=== PATIENT | female | born 1945 | race Caucasian/White ===

== ENCOUNTER → 2016-05-03 | Outpatient (CLI) | payer OTHER, MEDICARE ==
--- NOTE | 2016-05-03 16:55 | DX ---
Lumbar spine, 2 views History: M48.06, lumbar surgery. Comparison: March 2016. Findings: Bilateral transpedicle screws and fusion rods with interbody disk fusion plugs at the L3, L 4 and L5 levels with hardware appearing intact. Severe thoracolumbar levoscoliosis 48 degrees centere d at the L1 level. No evidence of acute compression fracture of the lumbar vertebral bodies. Moderate to severe degenerative disk disease at L1-L2 and L2-L3 with disk space narrowing and osteophytes. Sc lerotic changes in bilateral sacroiliac joints. Impression: 1. L3 through L5 diskectomy and hardware appearing intact. 2. Severe levoscoliosis.
== END ==
LOC: FIMAGING 14:50
PROVIDERS: ATTEND Physician Assistant
DX: M41.9 Scoliosis, unspecified (principal); Z98.1 Arthrodesis status

== ENCOUNTER → 2016-06-06 | Outpatient (CLI) | payer OTHER, MEDICARE ==
--- NOTE | 2016-06-06 19:50 | DX ---
Lumbar spine 2 views Indication: Post fusion. Comparison: May 03, 2016. Findings: Posterior transpedicular screws at L3, L4, and L5 demonstrate no change. No evidence for owens rdware fracture or loosening. The intervertebral disks materials are also unchanged. No compression d eformity. Rest of the spine is unchanged. Impression: No change since May 03, 2016.
== END ==
LOC: FIMAGING 14:03
PROVIDERS: ATTEND Physician Assistant
DX: Z09 Encounter for follow-up examination after completed treatment for conditions other than malignant neoplasm (principal); Z98.1 Arthrodesis status

== ENCOUNTER → 2016-08-29 | Outpatient (CLI) | payer OTHER, MEDICARE | LOC: FIMAGING 13:58 | PROVIDERS: ATTEND Physician Assistant Surgical | DX: Z47.89 Encounter for other orthopedic aftercare (principal); Z98.1 Arthrodesis status ==

== ENCOUNTER → 2016-11-16 | Outpatient (CLI) | payer OTHER, MEDICARE | LOC: FIMAGING 12:00 | PROVIDERS: ATTEND Physician Assistant Surgical | DX: M48.06 Spinal stenosis, lumbar region (principal); M99.73 Connective tissue and disc stenosis of intervertebral foramina of lumbar region; M89.38 Hypertrophy of bone, other site; Z98.1 Arthrodesis status ==

== ENCOUNTER → 2017-02-23 | Outpatient (CLI) | payer OTHER, MEDICARE | LOC: FIMAGING 12:49 | PROVIDERS: ATTEND Physician Assistant | DX: M41.84 Other forms of scoliosis, thoracic region (principal); M41.85 Other forms of scoliosis, thoracolumbar region; M41.86 Other forms of scoliosis, lumbar region; M47.24 Other spondylosis with radiculopathy, thoracic region; M47.25 Other spondylosis with radiculopathy, thoracolumbar region; M47.26 Other spondylosis with radiculopathy, lumbar region; M46.94 Unspecified inflammatory spondylopathy, thoracic region; M46.95 Unspecified inflammatory spondylopathy, thoracolumbar region; M46.96 Unspecified inflammatory spondylopathy, lumbar region; M46.97 Unspecified inflammatory spondylopathy, lumbosacral region; M51.37 Other intervertebral disc degeneration, lumbosacral region; M41.87 Other forms of scoliosis, lumbosacral region ==

== ENCOUNTER → 2017-03-31 | Outpatient (CLI) | payer OTHER, MEDICARE | LOC: FIMAGING 10:04 | PROVIDERS: ATTEND Internal Medicine | DX: R10.32 Left lower quadrant pain (principal) ==

== ENCOUNTER → 2017-04-27 | Outpatient (CLI) | payer OTHER, MEDICARE | LOC: FIMAGING 11:56 | PROVIDERS: ATTEND Internal Medicine | DX: M53.3 Sacrococcygeal disorders, not elsewhere classified (principal); R10.2 Pelvic and perineal pain ==

== ENCOUNTER → 2017-12-21 | Outpatient (CLI) | payer OTHER, MEDICARE | LOC: BMCIMAGING 14:50 | PROVIDERS: ATTEND Internal Medicine | DX: Z12.31 Encounter for screening mammogram for malignant neoplasm of breast (principal) ==

== ENCOUNTER → 2017-12-29 | Outpatient (CLI) | payer OTHER, MEDICARE | LOC: BMCIMAGING 10:24 | PROVIDERS: ATTEND Internal Medicine | DX: N60.01 Solitary cyst of right breast (principal) ==